=== PATIENT | male | born 1950 | race Caucasian/White ===

== ENCOUNTER 2024-08-09 09:03 | Day surgery (SDC) | payer BC ==
[2024-08-05 13:33] LABS: BASOPHILS # (AUTO) 0.2 X10'3 (0-0.2); MEAN CORPUSCULAR VOLUME 88.4 FL (78-98); MONOCYTES # (AUTO) 0.9 X10'3 (0-0.9); WHITE BLOOD COUNT 10.6 X10'3 (4.5-11.0)
[2024-08-05 13:35] LABS: BASOPHILS % (AUTO) 1.8 % (0-1); EOSINOPHILS % (AUTO) 9.2 % (0-6); HEMATOCRIT 44.3 % (42.0-52.0); LYMPHOCYTES # (AUTO) 3.3 X10'3 (1.1-4.8); LYMPHOCYTES % (AUTO) 31.7 % (21-51); MEAN CORPUSCULAR HEMOGLOBIN 29.9 PG (27.0-31.0); MEAN CORPUSCULAR HGB CONC 33.8 g/dL (33.0-36.5); MEAN PLATELET VOLUME 8.1 FL (7.4-10.4); MONOCYTES % (AUTO) 8.2 % (2-12); NEUTROPHILS # (AUTO) 5.2 X10'3 (1.8-7.7); NEUTROPHILS % (AUTO) 49.1 % (42-75); PLATELET COUNT 364 X10'3 (140-440); RED BLOOD COUNT 5.02 X10'6 (4.70-6.10); RED CELL DISTRIBUTION WIDTH 14.3 % (11.5-14.5)
[2024-08-05 13:42] LABS: ANION GAP 6 (8-16); BLOOD UREA NITROGEN 14 MG/DL (7-18); BUN/CREATININE RATIO 14.7 (10.0-20.0); CALCIUM 9.2 MG/DL (8.5-10.1); CHLORIDE 103 MMOL/L (99-107); CREATININE 0.95 MG/DL (0.60-1.10); GLUCOSE 99 MG/DL (70-104); POTASSIUM 3.3 MMOL/L (3.5-5.1); SODIUM 139 MMOL/L (135-145); TOTAL CARBON DIOXIDE 29.6 MMOL/L (24-32); eGFR 78 ML/MIN
[2024-08-05 13:46] LABS: APTT 28 SECONDS (22-32); INR 1.3 INR; PROTHROMBIN TIME 13.5 SECONDS (9.0-12.0)
[2024-08-09] VITALS (11 sets, daily range): BP systolic 98–150; BP diastolic 60–75; PULSE 52–88; RESP 12–14; TEMP 98; O2SAT 97–99
[~2024-08-09] VITALS: Ht 182.9 cm; Wt 125.7 kg
[~2024-08-09 09:03] MED LIST: ASPI81TA44 PO; ATOR20TA66 PO; FENO134C21 PO; LEVO25TA7 PO; LOSA-416 PO
[2024-08-09] MEDS ORDERED: HYDR-3965 PO (09:32)
[2024-08-09] MEDS ORDERED: ROSU20TA98 PO (09:33)
[2024-08-09] MEDS ORDERED: LEVO75TA7 PO (09:33)
[2024-08-09] MEDS ORDERED: AMLO5TAB16 PO (09:34)
[2024-08-09] MEDS ORDERED: CHLO25TA10 PO (09:36)
[2024-08-09] MEDS ORDERED: METO-395 PO (09:39)
[2024-08-09] MEDS ORDERED: VALS160T30 PO (09:40)
[2024-08-09] MEDS ORDERED: CHOL500050 PO (09:40)
[2024-08-09] MEDS ORDERED: APIX5TAB3 PO (09:40)
[2024-08-09] MEDS: normal saline 1000ml 1,000 ML IV SCH (13:52)
[2024-08-09] MEDS: fentaNYL/PF 50MCG/1 ML 2ML syringe IV ONE (13:53)
[2024-08-09] MEDS: MIDAZolam 1mg/ml 10ml vial IV ONE (13:53)
== END 2024-08-09 14:40 | disposition home or self-care (01) ==
LOC: SSTAY O 09:03
PROVIDERS: ATTEND Student in an Organized Health Care Education/Training Program
DX: I48.91 Unspecified atrial fibrillation (principal); I25.2 Old myocardial infarction; I44.4 Left anterior fascicular block; E03.9 Hypothyroidism, unspecified; G47.33 Obstructive sleep apnea (adult) (pediatric); I10 Essential (primary) hypertension; E78.5 Hyperlipidemia, unspecified; Z79.899 Other long term (current) drug therapy; Z98.890 Other specified postprocedural states
CPT/HCPCS: 36415; 80048; 84132; 85025; 85610; 85730; 92960; 93005; J2250; J3010; J7030